=== PATIENT | female | born 1925 | race Caucasian/White ===

== ENCOUNTER 2016-05-14 14:49 | Emergency (ER) | payer OTHER ==
[~2016-05-14] VITALS: Ht 147.3 cm; Wt 77.3 kg
[~2016-05-14 14:49] MED LIST: AMLO5 PO; COZA25TA PO; GLIM2TAB PO; PLAV75TA29 PO; TYLETAB34 PO
[2016-05-14 15:00] VITALS: BP 174/73; PULSE 82; RESP 16; TEMP 97.6; O2SAT 96
[2016-05-14] MEDS ORDERED: METF1000 PO (15:05)
--- NOTE | 2016-05-14 15:05 | PD ---
HPI Chief Complaint: fall Time Seen by Provider: 15:00 Travel History International Travel<30 days: No Contact w/Intl Traveler<30days: No Traveled to known affect area: No History of Present Illness HPI 89-year-old female with history of multiple medical issues, presents to the ER today because she was getting off of [employer] and misstepped, fell backwards hitting her tailbone, complaining of tailbone pain, right hip pain, and and pain at the base of her skull. She denies any loss of consciousness, headaches, vomiting, or any other issues or injuries. Modifying Factors: None Associated Signs & Symptoms: Fall, tailbone pain, right hip pain, pain at the base the skull Risk Factors: None PFSH Past Medical History Hx Anticoagulant Therapy: Yes Arthritis: Yes Autoimmune Disease: No Blood Disorders: No Cancer: No Cardiovascular Problems: Yes Chemotherapy: No COPD: Yes Cerebrovascular Accident: Yes Coronary Artery Disease: Yes Diabetes: Yes Diminished Hearing: No GERD: Yes Genitourinary: No Heparin Induced Thrombocytopen: No Hypertension: Yes Immune Disorder: No Implanted Vascular Access Dvce: No Musculoskeletal: Yes Neurologic: Yes Psychiatric: No Reproductive: No Respiratory: Yes Immunizations Current: Yes Radiation Therapy: No Sickle Cell Disease: No Past Surgical History Abdominal Surgery: Yes AICD: No Appendectomy: Yes Arteriovenous Shunt: No Cardiac Surgery: No Section: Yes Ear Surgery: No Endocrine Surgery: No Eye Surgery: Yes Genitourinary Surgery: No Gynecologic Surgery: No Hysterectomy: Yes Insulin Pump: No Joint Replacement: No Neurologic Surgery: No Oral Surgery: No Pacemaker: No Thoracic Surgery: No Other Surgery: Yes Social History Alcohol Use: Yes (OCCASIONAL) Tobacco Use: No Substance Use: No Allergies-Medications (Allergen,Severity, Reaction): Coded Allergies: Claritin (Verified Adverse Reaction, Severe, Anxiety, 05/14/16) Reported Meds & Prescriptions Reported Meds & Active Scripts Active Reported Metformin (Metformin HCl) 1,000 Mg Tab 1,000 Mg PO BIDPC With meals Cozaar (Losartan Potassium) 25 Mg Tab 25 Mg PO DAILY Plavix (Clopidogrel Bisulfate) 75 Mg Tab 75 Mg PO DAILY Norvasc (Amlodipine Besylate) 5 Mg Tab 5 Mg PO DAILY Review of Systems Except as stated in HPI: all other systems reviewed are Neg Physical Exam Narrative GENERAL: Well-nourished, well-developed elderly white female patient in no acute distress. Awake and oriented 3. SKIN: Warm and dry. HEAD: Normocephalic. Mild tenderness to palpation at the right base of the skull with no obvious deformities. EYES: No scleral icterus. No injection or drainage. NECK: Supple, trachea midline. CARDIOVASCULAR: Regular rate and rhythm without murmurs, gallops, or rubs. RESPIRATORY: Breath sounds equal bilaterally. No accessory muscle use. GASTROINTESTINAL: Abdomen soft, non-tender, nondistended. MUSCULOSKELETAL: No cyanosis, or edema. BACK: Mild tenderness with palpation of the right sacral area without obvious deformity. No CVA tenderness. Data Data Last Documented VS Vital Signs Date Time Temp Pulse Resp B/P Pulse Ox O2 Delivery O2 Flow Rate FiO2 05/14/16 16:30 74 18 186/77 94 Room Air 05/14/16 15:[address] Brain W/O Iv Contrast(Rout) (05/14/16 15:00) Ct Cerv Spine W/O Contrast (05/14/16 15:00) Hip, Uni(Ap&Lat) W Ap Pelvis (05/14/16 15:00) Sacrum And Coccyx (05/14/16 ) Knee, Complete (4vws) (05/14/16 16:30) [facility] Medical Decision Making Medical Screen Exam Complete: Yes Emergency Medical Condition: Yes Medical Record Reviewed: Yes Interpretation(s) Last 24 hours Impressions Knee X-Ray 05/14/16 1630 Signed Impressions: Service Date/Time: April 16:39 - CONCLUSION: 1. No acute fracture or malalignment. 2. Osteoarthritic change. Tr Mckeon MD Hip and Pelvis X-Ray 05/14/16 1500 Signed Impressions: Service Date/Time: April 15:37 - CONCLUSION: 1. No evidence of femoral neck fracture. 2. Possible avulsion fracture from the greater trochanter Cole Caicedo MD Head CT 05/14/16 1500 Signed Impressions: Service Date/Time: April 15:23 - CONCLUSION: 1. No acute hemorrhage, mass effect or fracture. 2. Atrophy and chronic small vessel ischemic change with old lacunar infarcts in the left basal ganglia. Tr Mckeon MD Cervical Spine CT 05/14/16 1500 Signed Impressions: Service Date/Time: April 15:23 - CONCLUSION: Negative trauma CT. Tr Mckeon MD Sacrum and Coccyx X-Ray 05/14/16 0000 Signed Impressions: Service Date/Time: April 15:44 - CONCLUSION: 1. There is no evidence of acute fracture. Cole Caicedo MD Differential Diagnosis Fall, sacral pain, head paincontusions versus fractures versus acute intracranial injuries Narrative Course X-ray of the right hip shows a questionable avulsion fracture versus chronic changes. Case was briefly discussed with Dr. Guajardo's PA and he discussed the case with the physician and states that these could be chronic changes but if the patient is having trouble walking, a further CAT scan can be done to further evaluate the patient. Patient is able to walk, patient can follow-up as an outpatient. Patient was walked in the ER and did not have problems. At this point, my plan would be to release her with decreased weightbearing on the right leg, help at home, and follow-up with primary care physician and Dr. Guajardo's office. Return for any worsening in symptoms as necessary. The plan has been discussed with her and she states understanding. Diagnosis Primary Impression: Injury of right hip Referrals: Jose Guajardo MD Med/Other Pt SpecificInfo: Prescription(s) given Scripts Tramadol 50 Mg Tab50 Mg PO Q8H PRN (PAIN) #10 TAB Ref 0 Prov:Mariza Benedict MD 05/14/16 Disposition: 01 DISCHARGE HOME Condition: Stable Mariza Benedict MD May 14, 2016 15:05
--- NOTE | 2016-05-14 16:06 | RADHPO ---
EXAM DATE/TIME: 05/14/2016 15:23 [facility] COMPARISON: CT BRAIN W/O CONTRAST, April 21, 2016, 20:54. INDICATIONS : Trauma. Fall. Pain in occipital region at base of skull. RADIATION DOSE: 59.20 CTDIvol (mGy) MEDICAL HISTORY : Cerebrovascular disease. Diabetes mellitus type 2. Hypertension. SURGICAL HISTORY : None. ENCOUNTER: Initial ACUITY: 1 day PAIN SCALE: 5/10 LOCATION: Bilateral occipital TECHNIQUE: Multiple contiguous axial images were obtained of the head. Using automated exposure control and adj ustment of the mA and/or kV according to patient size, radiation dose was kept as low as reasonably a chievable to obtain optimal diagnostic quality images. FINDINGS: CEREBRUM: The ventricles are normal for age with diffuse atrophic change. There are chronic small vessel ischem ic changes. No evidence of midline shift, mass lesion, hemorrhage or acute infarction. There is stabl e infarcts in the left basal ganglia. A No extra-axial fluid collections are seen. POSTERIOR FOSSA: The cerebellum and brainstem are intact. The 4th ventricle is midline. The cerebellopontine angle i s unremarkable. EXTRACRANIAL: The visualized portion of the orbits is intact. SKULL: The calvaria is intact. No evidence of skull fracture. CONCLUSION: 1. No acute hemorrhage, mass effect or fracture. 2. Atrophy and chronic small vessel ischemic change with old lacunar infarcts in the left basal gangl ia. Tr Mckeon MD on May 14, 2016 at 16:03 Board Certified Radiologist. This report was verified electronically.
--- NOTE | 2016-05-14 16:08 | RADHPO ---
EXAM DATE/TIME: 05/14/2016 15:23 [facility] COMPARISON: No previous studies available for comparison. INDICATIONS : Trauma. Fall. Pain in occipital region at base of skull. RADIATION DOSE: 26.43 CTDIvol (mGy) MEDICAL HISTORY : Cerebrovascular disease. Diabetes mellitus type 2. Hypertension. SURGICAL HISTORY : None. ENCOUNTER: Initial ACUITY: 1 day PAIN SCALE: 5/10 LOCATION: Bilateral neck TECHNIQUE: Volumetric scanning of the cervical spine was performed. Multiplanar reconstructions i n the sagittal, coronal and oblique axial planes were performed. Using automated exposure control a nd adjustment of the mA and/or kV according to patient size, radiation dose was kept as low as reason ably achievable to obtain optimal diagnostic quality images. FINDINGS: The sagittal reconstructions demonstrate normal alignment and normal prevertebral soft tissues. The d ens is intact and there is a normal atlantoaxial relationship. Degenerative changes are present at th e C5-6 and C6-7 levels with disc space narrowing and hypertrophic change. There are degenerative ramirez ges involving the atlantal axial joint with sclerosis and narrowing. The axial images demonstrate that the vertebral bodies and posterior elements are intact. The soft ti ssues are within normal limits. There is no evidence of acute fracture or malalignment. There are deg enerative changes involving the left C4-5 facet joint with hypertrophic change. Disc osteophyte compl exes are present at the C5-6 and C6-7 levels with mass effect on the anterior thecal sac. CONCLUSION: Negative trauma CT. Tr Mckeon MD on May 14, 2016 at 16:04 Board Certified Radiologist. This report was verified electronically.
--- NOTE | 2016-05-14 16:12 | RADHPO ---
EXAM DATE/TIME: 05/14/2016 15:37 [facility] COMPARISON: No previous studies available for comparison. INDICATIONS : Patient states right hip pain after fall today. MEDICAL HISTORY : Hypertension. Chronic obstructive pulmonary disease. Emphysema. SURGICAL HISTORY : None. ENCOUNTER: Initial ACUITY: 1 day PAIN SCORE: 5/10 LOCATION: Right Hip FINDINGS: There is no evidence of femoral neck fracture. Bony mineralization is normal. Joint spaces are mainta ined. On the lateral view of the hip there is enthesopathy versus avulsion in the region of the great er trochanter. CONCLUSION: 1. No evidence of femoral neck fracture. 2. Possible avulsion fracture from the greater trochanter Cole Caicedo MD on May 14, 2016 at 16:08 Board Certified Radiologist. This report was verified electronically.
--- NOTE | 2016-05-14 16:12 | RADHPO ---
EXAM DATE/TIME: 05/14/2016 15:44 [facility] COMPARISON: No previous studies available for comparison. INDICATIONS : Patient states she fell today, posterior pain. MEDICAL HISTORY : None. SURGICAL HISTORY : None. ENCOUNTER: Initial ACUITY: 1 day PAIN SCORE: 5/10 LOCATION: Bilateral Sacrum/Coccyx FINDINGS: Two-view examination of the sacrum and coccyx demonstrates no evidence of fracture or malalignment. The sacral ala and foramina appear symmetric and intact. The coccyx appears unremarkable. The preve rtebral soft tissues are within normal limits. Degenerative changes present at the lumbosacral juncti on. CONCLUSION: 1. There is no evidence of acute fracture. Cole Caicedo MD on May 14, 2016 at 16:10 Board Certified Radiologist. This report was verified electronically.
[2016-05-14 16:30] VITALS: BP 186/77; PULSE 74; RESP 18; O2SAT 94
--- NOTE | 2016-05-14 17:20 | RADHPO ---
EXAM DATE/TIME: 05/14/2016 16:39 [facility] COMPARISON: No previous studies available for comparison. INDICATIONS : Patient states she fell, left knee pain. MEDICAL HISTORY : None. SURGICAL HISTORY : None. ENCOUNTER: Initial ACUITY: 1 day PAIN SCORE: 5/10 LOCATION: Left Knee FINDINGS: A standard 4 view examination of the left knee was obtained and demonstrates no acute fracture or mal alignment. A mild degenerative changes medial compartment joint space loss, sclerosis and mild spurri ng. The patella is intact. There is mild osteopenia. The soft tissues are unremarkable. CONCLUSION: 1. No acute fracture or malalignment. 2. Osteoarthritic change. Tr Mckeon MD on May 14, 2016 at 17:18 Board Certified Radiologist. This report was verified electronically.
[2016-05-14 17:40] VITALS: BP 148/68; PULSE 75; RESP 18; O2SAT 97
[2016-05-14] MEDS ORDERED: TRAM50TA PO (17:42)
== END 2016-05-14 17:50 | disposition home or self-care (01) ==
LOC: PHED 14:49
DX: S79.911A Unspecified injury of right hip, initial encounter (principal); J44.9 Chronic obstructive pulmonary disease, unspecified; E11.9 Type 2 diabetes mellitus without complications; I10 Essential (primary) hypertension; W10.9XXA Fall (on) (from) unspecified stairs and steps, initial encounter; Y92.811 Bus as the place of occurrence of the external cause; M53.3 Sacrococcygeal disorders, not elsewhere classified; G44.89 Other headache syndrome; Z79.01 Long term (current) use of anticoagulants
CPT/HCPCS: 70450; 72125; 72220; 73502; 73564

== ENCOUNTER 2017-07-23 16:07 | Emergency (ER) | payer OTHER ==
[~2017-07-23] VITALS: Ht 142.2 cm; Wt 77.0 kg
[~2017-07-23 16:07] MED LIST changes: -GLIM2TAB PO; +METF1000 PO; +TRAM50TA PO; -TYLETAB34 PO
[2017-07-23 16:23] VITALS: BP 152/76; PULSE 87; RESP 18; TEMP 98.2; O2SAT 98
--- NOTE | 2017-07-23 17:48 | PD ---
HPI Chief Complaint: Fall Time Seen by Provider: 17:30 Travel History International Travel<30 days: No Contact w/Intl Traveler<30days: No Traveled to known affect area: No History of Present Illness HPI Patient is a pleasant 89-year-old female who presents the emergency room with complaints of fall. Patient reports that she was at a shopping center earlier today, reports that she was going onto the escalator when she missed the initial step and fell backwards. Patient reports that she did land onto her back, she was able to ambulate with assist after her fall. Patient denies any loss of consciousness after the fall, patient reports that she was able to ambulate without any difficulties. Patient is currently taking Aggrenox as she has history of CVA in the past. Patient reports only mild pain with range of motion to her right shoulder as well as her right hand. Patient denies any pain with rest. Patient this time reports no pain at all. Patient reports no headache, no nausea or vomiting after this incident. Patient reports no neck pain, no back pain, no chest pain, no abdominal pain, no pain with ambulation. Patient reports that she is just here to get checked out and make sure "nothing is broken." PFSH Past Medical History Hx Anticoagulant Therapy: Yes Arthritis: Yes Autoimmune Disease: No Blood Disorders: No Cancer: No Cardiovascular Problems: Yes Chemotherapy: No COPD: Yes Cerebrovascular Accident: Yes Coronary Artery Disease: Yes Diabetes: Yes Patient Takes Glucophage: Yes Diminished Hearing: No GERD: Yes Genitourinary: No Heparin Induced Thrombocytopen: No Hypertension: Yes Immune Disorder: No Implanted Vascular Access Dvce: No Musculoskeletal: Yes Neurologic: Yes Psychiatric: No Reproductive: No Respiratory: Yes Immunizations Current: Yes Radiation Therapy: No Sickle Cell Disease: No Thyroid Disease: Yes (Hypo-) Tetanus Vaccination: Unknown Influenza Vaccination: Yes ?: Not Menopausal: Yes Past Surgical History Abdominal Surgery: Yes AICD: No Appendectomy: Yes Arteriovenous Shunt: No Cardiac Surgery: No Section: Yes Ear Surgery: No Endocrine Surgery: No Eye Surgery: Yes Genitourinary Surgery: No Gynecologic Surgery: No Hysterectomy: Yes Insulin Pump: No Joint Replacement: No Neurologic Surgery: No Oral Surgery: No Pacemaker: No Thoracic Surgery: No Other Surgery: Yes Social History Alcohol Use: No Tobacco Use: No Substance Use: No Allergies-Medications (Allergen,Severity, Reaction): Coded Allergies: loratadine (Unverified Adverse Reaction, Severe, Anxiety, 07/23/17) Reported Meds & Prescriptions Reported Meds & Active Scripts Active Tramadol (Tramadol HCl) 50 Mg Tab 50 Mg PO Q8H PRN Reported Metformin (Metformin HCl) 1,000 Mg Tab 1,000 Mg PO BIDPC With meals Cozaar (Losartan Potassium) 25 Mg Tab 25 Mg PO DAILY Plavix (Clopidogrel Bisulfate) 75 Mg Tab 75 Mg PO DAILY Norvasc (Amlodipine Besylate) 5 Mg Tab 5 Mg PO DAILY Review of Systems General / Constitutional: No: Fever Eyes: No: Visual changes HENT: No: Headaches, Neck Pain Cardiovascular: No: Chest Pain or Discomfort Respiratory: No: Shortness of Breath Gastrointestinal: No: Abdominal Pain Genitourinary: No: Dysuria Musculoskeletal: Positive: Pain (Right-sided shoulder pain as well as right hand pain), No: Cramping, Edema Skin: No Rash Neurologic: No: Weakness Psychiatric: No: Depression Endocrine: No: Polydipsia Hematologic/Lymphatic: No: Easy Bruising Physical Exam Narrative GENERAL: No acute distress, nontoxic SKIN: Focused skin assessment warm/dry. HEAD: Atraumatic. Normocephalic. EYES: Pupils equal and round. No scleral icterus. No injection or drainage. ENT: No nasal bleeding or discharge. Mucous membranes pink and moist. NECK: Trachea midline. No JVD. CARDIOVASCULAR: Regular rate and rhythm. No murmur appreciated. RESPIRATORY: No accessory muscle use. Clear to auscultation. Breath sounds equal bilaterally. GASTROINTESTINAL: Abdomen soft, non-tender, nondistended. Hepatic and splenic margins not palpable. MUSCULOSKELETAL: No obvious deformities. No clubbing. No cyanosis. No edema. Patient with bruising to the right humerus, patient with bruising to the right hand, there are no obvious deformities, pulses intact, neurovascular intact. Patient also with bruising to the right buttocks, normal range of motion to bilateral hips, knees, ankles. Patient is walking in the emergency room with normal gait. No pain to the thenar eminence of the right or left hand NEUROLOGICAL: Awake and alert. No obvious cranial nerve deficits. Motor grossly within normal limits. Normal speech. Cranial nerves II to XII grossly intact with no neurological deficits PSYCHIATRIC: Appropriate mood and affect; insight and judgment normal. Data Data Last Documented VS Vital Signs Date Time Temp Pulse Resp B/P (MAP) Pulse Ox O2 Delivery O2 Flow Rate FiO2 07/23/17 19:04 81 18 193/79 (117) 97 Room Air 07/23/17 16:[address] Brain W/O Iv Contrast(Rout) (07/23/17 17:41) Shoulder, Complete (>2vws) (07/23/17 ) Humerus (Min 2vws) (07/23/17 ) Hand, Complete ([id number]) (07/23/17 ) MDM Medical Decision Making Medical Screen Exam Complete: Yes Emergency Medical Condition: Yes Medical Record Reviewed: Yes Interpretation(s) Vital Signs Date Time Temp Pulse Resp B/P (MAP) Pulse Ox O2 Delivery O2 Flow Rate FiO2 07/23/17 16:23 98.2 87 18 152/76 (101) 98 Differential Diagnosis Intracranial hemorrhage, concussion, shoulder fracture versus sprain versus contusion, hand fracture versus sprain versus contusion Narrative Course 89-year-old female who presents to emergency room with complaints of fall. Patient currently takes Aggrenox, reports no loss of consciousness after she fell backwards while trying to walk onto an escalator. Patient was able to ambulate without difficulty after incident. Patient with no major complaints at this time, reports some bruising to her right shoulder as well as her right buttocks, no other complaints. Overall, patient is nontoxic in evaluation, patient does have a normal neurological exam. Discussed with patient need for x -rays of her right shoulder, humerus as well as right hand. CT of the head ordered as patient reports no headache but now complains of a mild posterior pain to the back of her head, she is currently on Aggrenox and no other anticoagulants or antiplatelets During the course of the patients emergency department visit, the patients history, examination, and differential diagnosis were reviewed with the patient. The patient was initially provided no medications as patient reports that she is currently pain-free. Radiology studies were reviewed and remarkable for: Last Impressions Head CT 07/23/17 1741 Signed Impressions: Service Date/Time: Sunday, July 23, 2017 19:12 - CONCLUSION: 1. No acute abnormality is seen. 2. Atrophy. 3. Suspected small vessel ischemic change in the white matter and old infarcts. Avila Palacios MD Shoulder X-Ray 07/23/17 0000 Signed Impressions: Service Date/Time: Sunday, July 23, 2017 18:07 - CONCLUSION: No acute disease. Avila Palacios MD Humerus X-Ray 07/23/17 0000 Signed Impressions: Service Date/Time: Sunday, July 23, 2017 18:10 - CONCLUSION: No acute disease. Avila Palacios MD Hand X-Ray 07/23/17 0000 Signed Impressions: Service Date/Time: Sunday, July 23, 2017 18:11 - CONCLUSION: No acute disease. Avila Palacios MD Patient feeling much better on reevaluation. I reviewed all studies with patient as well as all incidental findings with her as well as her daughter in detail. A copy of her x-ray reports will be given to her discharge. Patient will follow with primary care doctor and will return to the emergency room as needed. Diagnosis Primary Impression: Sprain of shoulder, left Qualified Codes: S43.402A - Unspecified sprain of left shoulder joint, initial encounter Additional Impressions: Lung granuloma Head injury Qualified Codes: S09.90XA - Unspecified injury of head, initial encounter Patient Instructions: General Instructions Additional Instructions: Please provide patient with a copy of their studies at discharge Please follow up with your primary care doctor in 2-3 days Return to the ER if symptoms worsen or progress Return to the ER as needed Disposition: 01 DISCHARGE HOME Condition: Stable Shea Carter DO Jul 23, 2017 17:48
--- NOTE | 2017-07-23 18:40 | RADRPT ---
EXAM DATE/TIME: 07/23/2017 18:10 [facility] COMPARISON: No previous studies available for comparison. INDICATIONS : Right arm pain, fall. MEDICAL HISTORY : None. SURGICAL HISTORY : None. ENCOUNTER: Initial ACUITY: 1 day PAIN SCORE: 4/10 LOCATION: Right proximal arm FINDINGS: Two view examination of the right humerus demonstrates no evidence of fracture or dislocation. Bony mineralization is normal. There is minimal hypertrophic change at the lateral epicondyle region. The soft tissue structures are intact. CONCLUSION: No acute disease. Avila Palacios MD on July 23, 2017 at 18:38 Board Certified Radiologist. This report was verified electronically.
--- NOTE | 2017-07-23 18:40 | RADRPT ---
EXAM DATE/TIME: 07/23/2017 18:07 [facility] COMPARISON: No previous studies available for comparison. INDICATIONS : Right shoulder pain, fall. MEDICAL HISTORY : None. SURGICAL HISTORY : None. ENCOUNTER: Initial ACUITY: 1 day PAIN SCORE: 6/10 LOCATION: Right proximal shoulder FINDINGS: Multiple view examination of the right shoulder demonstrates no evidence of fracture or dislocation. The glenohumeral and acromioclavicular joints are maintained. There is normal range of motion betwe en internal and external rotation. Bony mineralization is normal. There is a granuloma in the right upper lung. CONCLUSION: No acute disease. Avila Palacios MD on July 23, 2017 at 18:37 Board Certified Radiologist. This report was verified electronically.
--- NOTE | 2017-07-23 18:42 | RADRPT ---
EXAM DATE/TIME: 07/23/2017 18:11 [facility] COMPARISON: No previous studies available for comparison. INDICATIONS : Right hand pain, fall. MEDICAL HISTORY : None. SURGICAL HISTORY : None. ENCOUNTER: Initial ACUITY: 1 day PAIN SCORE: 5/10 LOCATION: Right posterior hand FINDINGS: No acute fracture is seen. There is cystic change at the base of the trapezium bone. There is mild hy pertrophic change at the first carpometacarpal joint. CONCLUSION: No acute disease. Avila Palacios MD on July 23, 2017 at 18:38 Board Certified Radiologist. This report was verified electronically.
[2017-07-23 19:04] VITALS: BP 193/79; PULSE 81; RESP 18; O2SAT 97
--- NOTE | 2017-07-23 19:46 | RADRPT ---
EXAM DATE/TIME: 07/23/2017 19:12 [facility] COMPARISON: CT BRAIN W/O CONTRAST, May 14, 2016, 15:23. INDICATIONS : Trauma, fall on escalator. RADIATION DOSE: 56.35 CTDIvol (mGy) MEDICAL HISTORY : Cerebrovascular disease. Cardiovascular disease SURGICAL HISTORY : None. ENCOUNTER: Initial ACUITY: 1 day PAIN SCALE: 0/10 LOCATION: cranial TECHNIQUE: Multiple contiguous axial images were obtained of the head. Using automated exposure control and adj ustment of the mA and/or kV according to patient size, radiation dose was kept as low as reasonably a chievable to obtain optimal diagnostic quality images. DICOM format image data is available electro nically for review and comparison. FINDINGS: CEREBRUM: The ventricles and cortical sulci are widened. There are persistent areas of low-density seen at the posterior left basal ganglia and parietal-occipital regions bilaterally. There is decreased density i n the cerebral white matter. No evidence of midline shift, mass lesion, hemorrhage or acute infarcti on. No extra-axial fluid collections are seen. POSTERIOR FOSSA: The cerebellum and brainstem are intact. The 4th ventricle is midline. The cerebellopontine angle i s unremarkable. EXTRACRANIAL: The visualized portion of the orbits is intact. SKULL: The calvaria is intact. No evidence of skull fracture. CONCLUSION: 1. No acute abnormality is seen. 2. Atrophy. 3. Suspected small vessel ischemic change in the white matter and old infarcts. Avila Palacios MD on July 23, 2017 at 19:42 Board Certified Radiologist. This report was verified electronically.
[2017-07-23] MEDS ORDERED: ACETAMINOPHEN 325 MG TAB PO ONE (20:15)
== END 2017-07-23 20:27 | disposition home or self-care (01) ==
LOC: NEPD 16:07
DX: S43.402A Unspecified sprain of left shoulder joint, initial encounter (principal); S09.90XA Unspecified injury of head, initial encounter; J84.10 Pulmonary fibrosis, unspecified; M25.511 Pain in right shoulder; M79.641 Pain in right hand; E11.9 Type 2 diabetes mellitus without complications; I10 Essential (primary) hypertension; W10.0XXA Fall (on)(from) escalator, initial encounter; Y92.59 Other trade areas as the place of occurrence of the external cause; Z79.84 Long term (current) use of oral hypoglycemic drugs
CPT/HCPCS: 70450; 73030; 73060; 73130; 99284